=== PATIENT | female | born 1965 | race Caucasian/White ===

== ENCOUNTER 2019-05-31 14:37 | Emergency (ER) | payer MEDICARE, MEDICAID ==
[~2019-05-31] VITALS: Ht 157.5 cm; Wt 81.8 kg
[~2019-05-31 14:37] MED LIST: ACET-812 PO; BUSP5TAB3 PO; CARB200T PO; ESCI5TAB PO; FAMO-128 PO; KEN0.1O TP; KEP500T PO; LEVO1TAB19 PO; LEVO50TA66 PO; LORA0.5T PO; NYSPWD TP; PHEN100C4 PO; PRIM250T8 PO; QUET-1 PO; TERB125G PO; VAL5T PO
--- NOTE | 2019-05-31 15:08 | NUR ---
caregiver arrived is in room with pt
--- NOTE | 2019-05-31 16:41 | NUR ---
caregivers switched places, blood and ua being obtained, patient is following commands
[2019-05-31 16:59] LABS: BASOPHILS % (AUTO) 0.7 % (0-1); EOSINOPHILS % (AUTO) 0 % (0-6); HEMOGLOBIN 14.2 g/dl (12.0-16.0); LYMPHOCYTES # (AUTO) 2.4 X10'3 (1.1-4.8); LYMPHOCYTES % (AUTO) 46.6 % (21-51); MEAN CORPUSCULAR HGB CONC 33.7 g/dL (33.0-36.5); MEAN CORPUSCULAR VOLUME 92.1 FL (78-98); MONOCYTES # (AUTO) 0.5 X10'3 (0-0.9); MONOCYTES % (AUTO) 10.1 % (2-12); NEUTROPHILS # (AUTO) 2.2 X10'3 (1.8-7.7); NEUTROPHILS % (AUTO) 42.6 % (42-75); PLATELET COUNT 200 X10'3 (140-440); RED BLOOD COUNT 4.56 X10'6 (4.20-5.60); RED CELL DISTRIBUTION WIDTH 13.5 % (11.5-14.5); WHITE BLOOD COUNT 5.1 X10'3 (4.5-11.0)
[2019-05-31 17:03] LABS: CLARITY,URINE CLEAR (Clear); COLOR,URINE STRAW (Yellow); GLUCOSE, URINE NEGATIVE (Neg); KETONES,URINE NEGATIVE (Neg); LEUKOCYTE ESTERASE ,URINE NEGATIVE (Neg); NITRITES, URINE NEGATIVE (Neg); OCCULT BLOOD,URINE TRACE-INTACT (Neg); PROTEIN,URINE NEGATIVE (Neg); UROBILINOGEN,URINE 0.2 E.U/dL (0.2-1.0)
[2019-05-31 17:07] LABS: ALANINE AMINOTRANSFERASE 22 U/L (12-78); ALKALINE PHOSPHATASE 161 IU/L (46-116); ANION GAP 5 (8-16); ASPARTATE AMINO TRANSFERASE 29 U/L (10-37); BILIRUBIN,TOTAL 0.3 MG/DL (0.1-1.0); BLOOD UREA NITROGEN 19 MG/DL (7-18); BUN/CREATININE RATIO 27.5 (6.6-38.0); CALCIUM 9.2 MG/DL (8.5-10.1); CHLORIDE 103 MMOL/L (99-107); CREATININE 0.69 MG/DL (0.40-0.90); GLUCOSE 75 MG/DL (70-104); PHENYTOIN (DILANTIN) 15.4 UG/ML (10.0-20.0); POTASSIUM 4.2 MMOL/L (3.5-5.1); SODIUM 141 MMOL/L (135-145); TOTAL PROTEIN 8.1 G/DL (6.4-8.2); eGFR 89 ML/MIN
[2019-05-31 17:07] LABS: UA COLLECTION TYPE STRAIGHT CATH
[2019-05-31 17:09] LABS: MUCUS STRANDS MANY /LPF (Neg); SQUAMOUS EPITHELIAL CELL,UR MODERATE /LPF (FEW)
[2019-05-31 17:10] LABS: BACTERIA,URINE NONE SEEN /HPF (Neg); TRANSITIONAL EPI CELLS,URINE FEW /HPF; WBC,URINE 0-4 /HPF (0-4)
[2019-05-31 17:11] LABS: RBC,URINE 0-2 /HPF (0-2)
[2019-05-31 17:29] VITALS: BP 155/111
== END 2019-05-31 18:50 | disposition home or self-care (01) ==
LOC: ER 14:37
DX: G40.909 Epilepsy, unspecified, not intractable, without status epilepticus (principal); R53.1 Weakness; F32.9 Major depressive disorder, single episode, unspecified; Z13.9 Encounter for screening, unspecified; Z86.69 Personal history of other diseases of the nervous system and sense organs; Z79.899 Other long term (current) drug therapy
CPT/HCPCS: 36415; 80053; 80185; 81001; 85025; 99285

== ENCOUNTER 2020-07-18 09:37 | Emergency (ER) | payer MEDICARE, MEDICAID ==
[~2020-07-18] VITALS: Ht 160 cm; Wt 190.0 kg
[~2020-07-18 09:37] MED LIST changes: -ACET-812 PO; +ALPR0.5T9 PO; +APIX5TAB3 PO; -CARB200T PO; +CLOM25CA10 PO; +CLOM50CA2 PO; +DESV50TA20 PO; -ESCI5TAB PO; -FAMO-128 PO; -KEN0.1O TP; -LEVO1TAB19 PO; -NYSPWD TP; -QUET-1 PO; -TERB125G PO; -VAL5T PO; +ZIPR60CA7 PO
--- NOTE | 2020-07-18 10:14 | NUR ---
SPOKE TO YUNG FERGUSON WHO IS THE PTS CONSERVATOR...[phone]. WHO STATED " IF THEY BROUGHT HER TO THE EMERGENCY ROOM, BY ALL MEANS.... IF THE DOCTOR THINKS SHE NEEDS IT PLEASE DO THE TEST THAT THE DOCTOR ORDERED....
[2020-07-18 11:35] LABS: BASOPHILS % (AUTO) 0.9 % (0-1); EOSINOPHILS % (AUTO) 0.1 % (0-6); HEMATOCRIT 39.7 % (35.0-45.0); HEMOGLOBIN 13.3 g/dl (12.0-16.0); LYMPHOCYTES # (AUTO) 1.3 X10'3 (1.1-4.8); LYMPHOCYTES % (AUTO) 34.3 % (21-51); MEAN CORPUSCULAR HEMOGLOBIN 32.1 PG (27.0-31.0); MEAN CORPUSCULAR HGB CONC 33.5 g/dL (33.0-36.5); MEAN CORPUSCULAR VOLUME 95.6 FL (78-98); MEAN PLATELET VOLUME 7.3 FL (7.4-10.4); MONOCYTES # (AUTO) 0.4 X10'3 (0-0.9); MONOCYTES % (AUTO) 9.8 % (2-12); NEUTROPHILS # (AUTO) 2.1 X10'3 (1.8-7.7); NEUTROPHILS % (AUTO) 54.9 % (42-75); PLATELET COUNT 205 X10'3 (140-440); RED BLOOD COUNT 4.15 X10'6 (4.20-5.60); RED CELL DISTRIBUTION WIDTH 13.9 % (11.5-14.5); WHITE BLOOD COUNT 3.7 X10'3 (4.5-11.0)
[2020-07-18 11:53] LABS: ALANINE AMINOTRANSFERASE 24 U/L (12-78); ALBUMIN 3.3 G/DL (3.4-5.0); ALBUMIN/GLOBULIN RATIO 0.8 (1.1-1.5); ALKALINE PHOSPHATASE 141 IU/L (46-116); ANION GAP 6 (8-16); ASPARTATE AMINO TRANSFERASE 23 U/L (10-37); BILIRUBIN,TOTAL 0.2 MG/DL (0.1-1.0); BLOOD UREA NITROGEN 16 MG/DL (7-18); CALCIUM 8.4 MG/DL (8.5-10.1); CHLORIDE 104 MMOL/L (99-107); CREATININE 0.64 MG/DL (0.40-0.90); GLUCOSE 91 MG/DL (70-104); POTASSIUM 4.3 MMOL/L (3.5-5.1); SODIUM 141 MMOL/L (135-145); TOTAL CARBON DIOXIDE 31.1 MMOL/L (24-32); TOTAL PROTEIN 7.2 G/DL (6.4-8.2); eGFR > 90 ML/MIN
[2020-07-18 13:22] VITALS: BP 127/84
== END 2020-07-18 16:10 | disposition home or self-care (01) ==
LOC: ER 09:38
DX: S09.90XA Unspecified injury of head, initial encounter (principal); G43.909 Migraine, unspecified, not intractable, without status migrainosus; R62.50 Unspecified lack of expected normal physiological development in childhood; G80.9 Cerebral palsy, unspecified; I82.502 Chronic embolism and thrombosis of unspecified deep veins of left lower extremity; Z79.01 Long term (current) use of anticoagulants; Z79.899 Other long term (current) drug therapy; W19.XXXA Unspecified fall, initial encounter; Z91.81 History of falling; Y93.89 Activity, other specified; Y92.89 Other specified places as the place of occurrence of the external cause; Y99.8 Other external cause status
CPT/HCPCS: 36415; 70450; 72125; 80053; 85025; 99285

== ENCOUNTER 2020-10-07 16:00 | Emergency (ER) | payer MEDICARE, MEDICAID ==
[~2020-10-07] VITALS: Ht 157.5 cm; Wt 80.0 kg
--- NOTE | 2020-10-07 16:25 | NUR ---
as per patricia kwon no need to notified posion control as the medication dose is within normal limit of day ,will observe the pt in er for respiratoy depression.pt vitals within normal limits.
[2020-10-07 17:59] VITALS: BP 137/90
== END 2020-10-07 18:07 | disposition home or self-care (01) ==
LOC: ER 16:01
DX: R62.50 Unspecified lack of expected normal physiological development in childhood (principal); T42.4X5A Adverse effect of benzodiazepines, initial encounter; F41.9 Anxiety disorder, unspecified; F32.9 Major depressive disorder, single episode, unspecified; Z86.69 Personal history of other diseases of the nervous system and sense organs; Z79.899 Other long term (current) drug therapy; Y92.89 Other specified places as the place of occurrence of the external cause
CPT/HCPCS: 93005; 99283

== ENCOUNTER 2021-01-23 12:31 | Emergency (ER) | payer MEDICARE, MEDICAID ==
[~2021-01-23] VITALS: Ht 157.5 cm; Wt 90.9 kg
[2021-01-23 13:26] VITALS: BP 120/78
--- NOTE | 2021-01-23 14:50 | NUR ---
PULSES ON LEFT WITH DOPPLER
== END 2021-01-23 15:48 | disposition home or self-care (01) ==
LOC: ER 12:32
DX: S90.32XA Contusion of left foot, initial encounter (principal); M79.672 Pain in left foot; R62.50 Unspecified lack of expected normal physiological development in childhood; G80.9 Cerebral palsy, unspecified; F41.9 Anxiety disorder, unspecified; F32.9 Major depressive disorder, single episode, unspecified; Z86.69 Personal history of other diseases of the nervous system and sense organs; Z79.899 Other long term (current) drug therapy; X58.XXXA Exposure to other specified factors, initial encounter; Y93.89 Activity, other specified; Y92.89 Other specified places as the place of occurrence of the external cause; Y99.8 Other external cause status
CPT/HCPCS: 73630; 99284

== ENCOUNTER 2021-06-15 18:32 | Emergency (ER) | payer MEDICARE, MEDICAID ==
[~2021-06-15] VITALS: Ht 157.5 cm; Wt 93.2 kg
--- NOTE | 2021-06-15 20:06 | NUR ---
PT BROUGHT IN TO HOSPITAL PER CAREGIVER FOR MULTIPLE SEIZURES ON TODAY. PT HAS HX OF SEIZURE DISORDER. WAS TOLD BY CAREGIVER THAT THEY SKIPPED HER MEDS TODAY SO BLOOD WORK CAN BE MORE ACCURATE. PT HAD WITNESSED SEIZURE IN ED THAT LASTED 3 SEC. NO LETHARGY OR CONFUSION NOTED. DEVELOPMENTALLY DELAYED BUT NO ACUTE CHANGES. WILL MONITOR WITHOUT.
[2021-06-15] MEDS ORDERED: LIDOcaine 2% 10ml TOPICAL JELLY (Urojet) TP ONE (22:15)
[2021-06-15] MEDS ORDERED: levetiracetam inj 1,000 MG in normal saline 100ml IV soln 90 ML IV ONE (22:20)
[2021-06-15] MEDS ORDERED: levetiracetam-NS 1000mg/100ml 100 ML IV ONE (22:33)
[2021-06-15 22:38] LABS: BASOPHILS # (AUTO) 0.1 X10'3 (0-0.2); BASOPHILS % (AUTO) 0.7 % (0-1); EOSINOPHILS # (AUTO) 0.3 X10'3 (0-0.9); EOSINOPHILS % (AUTO) 3.6 % (0-6); HEMATOCRIT 40.8 % (35.0-45.0); LYMPHOCYTES # (AUTO) 2.9 X10'3 (1.1-4.8); LYMPHOCYTES % (AUTO) 38.1 % (21-51); MEAN CORPUSCULAR HEMOGLOBIN 32.1 PG (27.0-31.0); MEAN CORPUSCULAR HGB CONC 34.2 g/dL (33.0-36.5); MEAN CORPUSCULAR VOLUME 93.9 FL (78-98); MEAN PLATELET VOLUME 8.2 FL (7.4-10.4); MONOCYTES # (AUTO) 0.5 X10'3 (0-0.9); MONOCYTES % (AUTO) 6.9 % (2-12); NEUTROPHILS # (AUTO) 3.8 X10'3 (1.8-7.7); NEUTROPHILS % (AUTO) 50.7 % (42-75); PLATELET COUNT 237 X10'3 (140-440); RED BLOOD COUNT 4.35 X10'6 (4.20-5.60); RED CELL DISTRIBUTION WIDTH 14.5 % (11.5-14.5); WHITE BLOOD COUNT 7.5 X10'3 (4.5-11.0)
[2021-06-15 22:51] LABS: ALANINE AMINOTRANSFERASE 29 U/L (12-78); ALBUMIN 3.6 G/DL (3.4-5.0); ALBUMIN/GLOBULIN RATIO 0.9 (1.1-1.5); ALKALINE PHOSPHATASE 158 IU/L (46-116); ANION GAP 10 (8-16); ASPARTATE AMINO TRANSFERASE 30 U/L (10-37); BILIRUBIN,TOTAL 0.3 MG/DL (0.1-1.0); BLOOD UREA NITROGEN 20 MG/DL (7-18); BUN/CREATININE RATIO 29.4 (6.6-38.0); CALCIUM 8.4 MG/DL (8.5-10.1); CHLORIDE 101 MMOL/L (99-107); CREATININE 0.68 MG/DL (0.40-0.90); GLUCOSE 87 MG/DL (70-104); MAGNESIUM 2.3 MG/DL (1.5-2.4); PHENYTOIN (DILANTIN) 13.7 UG/ML (10.0-20.0); SODIUM 137 MMOL/L (135-145); TOTAL CARBON DIOXIDE 25.9 MMOL/L (24-32); TOTAL PROTEIN 7.8 G/DL (6.4-8.2); eGFR 90 ML/MIN
[2021-06-15 22:52] LABS: POTASSIUM 4.3 MMOL/L (3.5-5.1)
[2021-06-15 23:22] LABS: CLARITY,URINE CLEAR (Clear); COLOR,URINE YELLOW (Yellow); GLUCOSE, URINE NEGATIVE (Neg); KETONES,URINE NEGATIVE (Neg); LEUKOCYTE ESTERASE ,URINE NEGATIVE (Neg); NITRITES, URINE NEGATIVE (Neg); OCCULT BLOOD,URINE NEGATIVE (Neg); PH,URINE 7.5 (4.8-8.0); PROTEIN,URINE NEGATIVE (Neg); UROBILINOGEN,URINE 0.2 E.U/dL (0.2-1.0)
[2021-06-15 23:23] LABS: UA COLLECTION TYPE CLN CATCH MIDSTREAM
[2021-06-15] MEDS ORDERED: PHEN100C4 PO (23:27)
[2021-06-15] MEDS ORDERED: LORA-268 PO (23:35)
[2021-06-15] MEDS ORDERED: phenytoin sod ER 100mg capsule PO ONE (23:40)
[2021-06-15] MEDS: LORazepam 0.5 MG tablet PO PRN (23:49)
[2021-06-16 00:24] VITALS: BP 110/70
[2021-06-16] MEDS: LORazepam 0.5 MG tablet PO PRN (00:24)
== END 2021-06-16 00:27 | disposition home or self-care (01) ==
LOC: ER 18:32
DX: R56.9 Unspecified convulsions (principal); F41.9 Anxiety disorder, unspecified; F32.A Depression, unspecified; Z86.69 Personal history of other diseases of the nervous system and sense organs; Z79.899 Other long term (current) drug therapy
CPT/HCPCS: 36415; 80053; 80185; 81003; 83735; 85025; 99284

== ENCOUNTER 2023-03-01 13:25 | Emergency (ER) | payer MEDICARE, MEDICAID ==
[~2023-03-01] VITALS: Ht 172.7 cm; Wt 100.0 kg
[~2023-03-01 13:25] MED LIST changes: +LORA-268 PO
[2023-03-01 16:38] LABS: BASOPHILS # (AUTO) 0.1 X10'3 (0-0.2); BASOPHILS % (AUTO) 0.9 % (0-1); EOSINOPHILS # (AUTO) 0.2 X10'3 (0-0.9); EOSINOPHILS % (AUTO) 3.9 % (0-6); HEMATOCRIT 39.6 % (35.0-45.0); HEMOGLOBIN 13.4 g/dl (12.0-16.0); LYMPHOCYTES # (AUTO) 1.9 X10'3 (1.1-4.8); LYMPHOCYTES % (AUTO) 33.7 % (21-51); MEAN CORPUSCULAR HEMOGLOBIN 32.7 PG (27.0-31.0); MEAN CORPUSCULAR HGB CONC 33.8 g/dL (33.0-36.5); MEAN CORPUSCULAR VOLUME 96.9 FL (78-98); MEAN PLATELET VOLUME 7.6 FL (7.4-10.4); MONOCYTES # (AUTO) 0.4 X10'3 (0-0.9); MONOCYTES % (AUTO) 7.6 % (2-12); NEUTROPHILS # (AUTO) 3.1 X10'3 (1.8-7.7); NEUTROPHILS % (AUTO) 53.9 % (42-75); PLATELET COUNT 274 X10'3 (140-440); RED BLOOD COUNT 4.09 X10'6 (4.20-5.60); WHITE BLOOD COUNT 5.8 X10'3 (4.5-11.0)
[2023-03-01 16:43] LABS: ALANINE AMINOTRANSFERASE 24 U/L (12-78); ALBUMIN 3.6 G/DL (3.4-5.0); ALBUMIN/GLOBULIN RATIO 0.8 (1.1-1.5); ALKALINE PHOSPHATASE 176 IU/L (46-116); ANION GAP 5 (8-16); ASPARTATE AMINO TRANSFERASE 24 U/L (10-37); BILIRUBIN,TOTAL 0.2 MG/DL (0.1-1.0); BLOOD UREA NITROGEN 13 MG/DL (7-18); BUN/CREATININE RATIO 19.4 (10.0-20.0); CALCIUM 8.9 MG/DL (8.5-10.1); CHLORIDE 101 MMOL/L (99-107); CREATININE 0.67 MG/DL (0.40-0.90); GLUCOSE 93 MG/DL (70-104); POTASSIUM 3.9 MMOL/L (3.5-5.1); SODIUM 137 MMOL/L (135-145); TOTAL CARBON DIOXIDE 31.1 MMOL/L (24-32); eCRCL 93 ML/MIN; eGFR > 90 ML/MIN
[2023-03-01 21:40] VITALS: BP 145/87; PULSE 87; RESP 14; TEMP 97.1; O2SAT 99
== END 2023-03-01 21:42 | disposition home or self-care (01) ==
LOC: ER 13:25
DX: H50.9 Unspecified strabismus (principal); Z79.899 Other long term (current) drug therapy; Z79.2 Long term (current) use of antibiotics
CPT/HCPCS: 36415; 80053; 85025; 99285

== ENCOUNTER 2023-08-31 16:23 | Emergency (ER) | payer MEDICARE, MEDICAID ==
[~2023-08-31] VITALS: Ht 170.2 cm; Wt 91.8 kg
[~2023-08-31 16:23] MED LIST changes: +CLOM50CA PO; -CLOM50CA2 PO
[2023-08-31] MEDS: LORazepam 2 mg/ml vial IV ONE (17:02)
[2023-08-31 17:36] LABS: BASOPHILS # (AUTO) 0.1 X10'3 (0-0.2); EOSINOPHILS # (AUTO) 0.2 X10'3 (0-0.9); EOSINOPHILS % (AUTO) 3.5 % (0-6); HEMATOCRIT 40.6 % (35.0-45.0); HEMOGLOBIN 13.5 g/dl (12.0-16.0); LYMPHOCYTES % (AUTO) 38.6 % (21-51); MEAN CORPUSCULAR HEMOGLOBIN 31.6 PG (27.0-31.0); MEAN CORPUSCULAR HGB CONC 33.2 g/dL (33.0-36.5); MEAN CORPUSCULAR VOLUME 95.2 FL (78-98); MEAN PLATELET VOLUME 8.2 FL (7.4-10.4); MONOCYTES # (AUTO) 0.4 X10'3 (0-0.9); MONOCYTES % (AUTO) 7.5 % (2-12); NEUTROPHILS # (AUTO) 2.6 X10'3 (1.8-7.7); NEUTROPHILS % (AUTO) 49.4 % (42-75); PLATELET COUNT 225 X10'3 (140-440); RED BLOOD COUNT 4.27 X10'6 (4.20-5.60); RED CELL DISTRIBUTION WIDTH 13.9 % (11.5-14.5); WHITE BLOOD COUNT 5.3 X10'3 (4.5-11.0)
[2023-08-31 17:49] LABS: ALANINE AMINOTRANSFERASE 26 U/L (12-78); ALBUMIN 3.7 G/DL (3.4-5.0); ALBUMIN/GLOBULIN RATIO 0.9 (1.1-1.5); ALKALINE PHOSPHATASE 136 IU/L (46-116); ANION GAP 6 (8-16); ASPARTATE AMINO TRANSFERASE 18 U/L (10-37); BILIRUBIN,TOTAL 0.3 MG/DL (0.1-1.0); BLOOD UREA NITROGEN 16 MG/DL (7-18); BUN/CREATININE RATIO 21.6 (10.0-20.0); CALCIUM 8.8 MG/DL (8.5-10.1); CHLORIDE 101 MMOL/L (99-107); CREATININE 0.74 MG/DL (0.40-0.90); GLUCOSE 99 MG/DL (70-104); POTASSIUM 4.1 MMOL/L (3.5-5.1); SODIUM 137 MMOL/L (135-145); TOTAL CARBON DIOXIDE 30.4 MMOL/L (24-32); TOTAL PROTEIN 7.6 G/DL (6.4-8.2); eCRCL 82 ML/MIN; eGFR 81 ML/MIN
[2023-08-31] MEDS: levetiracetam inj 1,000 MG in normal saline 100ml IV soln 100 ML IV ONE (17:49)
[2023-08-31 17:51] VITALS: TEMP 98.5
[2023-08-31] MEDS: levetiracetam 250mg tablet PO ONE (18:42)
[2023-08-31 18:55] VITALS: BP 135/97; PULSE 88; RESP 17; O2SAT 94
== END 2023-08-31 18:56 | disposition home or self-care (01) ==
LOC: ER 16:23
DX: G40.909 Epilepsy, unspecified, not intractable, without status epilepticus (principal)
CPT/HCPCS: 36415; 80053; 85025; 96365; 96375; 99284; J1953; J2060; J7030

== ENCOUNTER → 2024-02-26 | Outpatient (CLI) | payer MEDICARE, MEDICAID ==
[2024-02-26 21:19] LABS: BILIRUBIN,URINE NEGATIVE (Neg); CLARITY,URINE CLEAR (Clear); COLOR,URINE YELLOW (Yellow); GLUCOSE, URINE NEGATIVE (Neg); KETONES,URINE NEGATIVE (Neg); LEUKOCYTE ESTERASE ,URINE SMALL (Neg); NITRITES, URINE NEGATIVE (Neg); OCCULT BLOOD,URINE NEGATIVE (Neg); PROTEIN,URINE NEGATIVE (Neg); UROBILINOGEN,URINE 0.2 E.U/dL (0.2-1.0)
[2024-02-26 21:28] LABS: UA COLLECTION TYPE NON-SPECIFIED
[2024-02-26 21:29] LABS: BACTERIA,URINE FEW /HPF (Neg); RBC,URINE 0-2 /HPF (0-2); SQUAMOUS EPITHELIAL CELL,UR FEW /LPF (FEW)
== END | disposition home or self-care (01) ==
LOC: LAB SPEC 20:03
PROVIDERS: ATTEND Family Medicine
DX: N39.0 Urinary tract infection, site not specified (principal)
CPT/HCPCS: 81001; 87088